=== PATIENT | male | born 1960 | race Caucasian/White ===

== ENCOUNTER 2016-09-19 18:46 | Inpatient (IN) | payer MEDICARE ==
[~2016-09-19 18:46] MED LIST: AVOD0.5C PO; CYCL-36 PO; CYMB60CA PO; FENO1CAP4 PO; IBUP-232 PO; ICOS1CAP PO; OMEP20TA PO; TERA2CAP3 PO; VALS160 PO
[2016-09-19] MEDS ORDERED: DIPHTH/TETANUS/ACEL PERTUSSIS (BOOSTER) 0.5 ML VIAL/PFS IM ONE (18:52)
[2016-09-19] MEDS ORDERED: ONDANSETRON HCL 4 MG/2 ML VIAL ONE (18:52)
[2016-09-19 19:09] LABS: I-STAT POTASSIUM 4.3 MMOL/L (3.5-4.9)
[2016-09-19 19:10] LABS: AUTOMATED NEUTROPHIL # 11.8 TH/MM3 (1.8-7.7); BASOPHIL # 0.1 TH/MM3 (0-0.2); BASOPHIL % 0.4 % (0.0-2.0); EOSINOPHIL # 0.1 TH/MM3 (0-0.4); EOSINOPHIL % 0.4 % (0.0-4.0); HEMATOCRIT 41.6 % (39.0-51.0); HEMO FLAGS DIFF FINAL; LYMPH % 19.9 % (9.0-44.0); LYMPHOCYTE # 3.2 TH/MM3 (1.0-4.8); MEAN CELL VOLUME 90.4 FL (80.0-100.0); MEAN CORPUSCULAR HEMOGLOBIN 29.7 PG (27.0-34.0); MEAN CORPUSCULAR HGB CONC 32.9 % (32.0-36.0); MONO % 6.2 % (0.0-8.0); NEUT % 73.1 % (16.0-70.0); PLATELET COUNT 201 TH/MM3 (150-450); RED CELL DISTRIBUTION WIDTH 14.8 % (11.6-17.2); WHITE BLOOD COUNT 16.1 TH/MM3 (4.0-11.0)
[2016-09-19] MEDS ORDERED: CLINDAMYCIN 600 MG/NS 100 ML IV ONE ×2 (19:15)
[2016-09-19 19:21] LABS: APTT (PATIENT) 23.8 SEC (24.3-30.1); PROTHROMBIN TIME - PATIENT 11.6 SEC (9.8-11.6)
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
[2016-09-19] MEDS ORDERED: LIDOCAINE 1%/EPINEPHrine 1:100,000 SOLN 20 ML VIAL INFIL ONE (19:45)
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
[2016-09-19] MEDS ORDERED: IOHEXOL 350 MG/ML 10 ML VIAL (for RAD DIAG) IV ONE (19:56)
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
[2016-09-19] MEDS ORDERED: ALPRAZolam 0.25 MG TAB PO PRN (21:45)
[2016-09-19] MEDS ORDERED: CHLORHEXIDINE GLUCONATE 2 % 1 PACK (2 CLOTHS) TOP PRN (21:45)
[2016-09-19] MEDS ORDERED: MISCELLANEOUS NURSING INFORMATION XX SCH (21:45)
[2016-09-19] MEDS ORDERED: MAGNESIUM HYDROXIDE SUSP 30 ML CUP PO PRN (21:45)
[2016-09-19] MEDS ORDERED: ENALAPRILAT 1.25 MG/ML VIAL IV PRN (21:45)
[2016-09-19] MEDS ORDERED: ONDANSETRON HCL 4 MG/2 ML VIAL IV PRN (21:45)
[2016-09-19] MEDS ORDERED: SODIUM CHLORIDE 0.9% FLUSH 5 ML FLUSH IVF PRN (21:45)
[2016-09-19] MEDS ORDERED: ACETAMINOPHEN/HYDROcodone 325 MG/5 MG TAB PO PRN (21:45)
[2016-09-19] MEDS: ENOXAPARIN SODIUM 30 MG/0.3 ML SYRINGE SQ SCH (23:00)
--- NOTE | 2016-09-19 23:06 | PD ---
Physical Exam Date Seen by Provider: Sep 19, 2016 Time Seen by Provider: 23:03 Narrative I was asked by Dr. Allison and Dr. Pate to repair laceration to the patient's right lower leg and forehead. Patient has a 23 cm laceration that is gaping approximately 3 cm across. Patient also has a 16 cm jagged laceration to the forehead. There is a lot of debris in the laceration in the laceration is down to the skull. I was able to repair the laceration to the right lower leg. However, I do feel it is more appropriate for plastics repair the laceration to the forehead. Dr. Conroy was paged. He will come to the emergency department and evaluate the patient. Data Data Orders Fentanyl Inj (Fentanyl Inj) (09/19/16 18:52) Ondansetron Inj (Zofran Inj) (09/19/16 18:52) Hpmc-Crz-Mqcftm (Booster) Inj (Boostrix (09/19/16 18:52) I-Stat Profile (09/19/16 18:49) I-Stat Creatinine (09/19/16 18:49) Complete Blood Count With Diff (09/19/16 18:49) Prothrombin Time / Inr (Pt) (09/19/16 18:49) Act Partial Throm Time (Ptt) (09/19/16 18:49) Type And Screen (09/19/16 18:49) Ct Brain W/O Iv Contrast(Rout) (09/19/16 18:49) Ct Cerv Spine W/O Contrast (09/19/16 18:49) Ct Abd/Pel W Iv Contrast(Rout) (09/19/16 18:49) Ct Thorax/ Chest W Iv Contrast (09/19/16 18:49) Ct Lumb Spine W/O Contrast (09/19/16 18:49) Ct Facial Bones W/O Iv Cont (09/19/16 18:49) Iv Access Insert/Monitor (09/19/16 18:49) Ecg Monitoring (09/19/16 18:49) Oximetry (09/19/16 18:49) Oxygen Administration (09/19/16 18:49) Chest, Single Ap (09/19/16 ) Tibia/Fibula (Ap/Lat) (09/19/16 ) Clindamycin Inj (Cleocin Inj) (09/19/16 19:15) Admit Order (Ed Use Only) (09/19/16 ) Labs Laboratory Tests Test 09/19/16 18:48 White Blood Count 16.1 TH/MM3 Red Blood Count 4.60 MIL/MM3 Hemoglobin 13.7 GM/DL Bedside Hemoglobin 14.3 G/DL Hematocrit 41.6 % Bedside Hematocrit 42.0 % Mean Corpuscular Volume 90.4 FL Mean Corpuscular Hemoglobin 29.7 PG Mean Corpuscular Hemoglobin 32.9 % Concent Red Cell Distribution Width 14.8 % Platelet Count 201 TH/MM3 Mean Platelet Volume 9.2 FL Neutrophils (%) (Auto) 73.1 % Lymphocytes (%) (Auto) 19.9 % Monocytes (%) (Auto) 6.2 % Eosinophils (%) (Auto) 0.4 % Basophils (%) (Auto) 0.4 % Neutrophils # (Auto) 11.8 TH/MM3 Lymphocytes # (Auto) 3.2 TH/MM3 Monocytes # (Auto) 1.0 TH/MM3 Eosinophils # (Auto) 0.1 TH/MM3 Basophils # (Auto) 0.1 TH/MM3 CBC Comment DIFF FINAL Differential Comment Prothrombin Time 11.6 SEC Prothromb Time International 1.0 RATIO Ratio Activated Partial 23.8 SEC Thromboplast Time Bedside Sodium 140 MMOL/L Bedside Potassium 4.3 MMOL/L Bedside Chloride 109 MMOL/L Bedside Blood Urea Nitrogen 25 MG/DL Bedside Creatinine 1.4 MG/DL Bedside Glucose 121 MG/DL Blood Type AB POSITIVE Antibody Screen NEGATIVE MDM Supervised Visit with GEE: No Procedures Procedure Narrative LACERATION LOCATION: Right lower leg LENGTH: 23 cm NUMBER OF STITCHES/SHIRAZ: 37 Prolene sutures, 5 Vicryl sutures REPAIR: The area of the laceration was prepped with Betadine and sterilely draped. The laceration was infiltrated with 1% lidocaine with epinephrine. The wound was copiously irrigated and explored without evidence of foreign body, tendon injury or neurovascular injury. The wound was closed using 3-0 Prolene and 4-0 Vicryl. This was a double layer repair. A sterile dressing was applied. The patient was advised to keep the dressing clean and dry. Patient tolerated the procedure well. Lilliana Adorno Sep 19, 2016 23:06
[2016-09-19] MEDS ORDERED: SODIUM BICARBONATE 8.4% INJ 50 MEQ/50 ML SYR IV PUSH ONE (23:15)
[2016-09-19] MEDS ORDERED: SODIUM BICARBONATE 8.4% INJ 50 ML ONE (23:28)
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
[2016-09-20 01:32] VITALS: BP 126/78; PULSE 80; RESP 17; TEMP 98; O2SAT 96
[2016-09-20] MEDS: ACETAMINOPHEN/HYDROcodone 325 MG/5 MG TAB PO PRN ×3 (02:04→13:31)
[2016-09-20 04:00] VITALS: BP 122/65; PULSE 77; RESP 18; TEMP 97.9; O2SAT 94
[2016-09-20] MEDS ORDERED: CHLORHEXIDINE GLUCONATE 2 % 1 PACK (2 CLOTHS) TOP SCH (04:00)
[2016-09-20] MEDS: CLINDAMYCIN INJ 600 MG in SODIUM CHLORIDE 0.9% INJ 100 ML IV SCH ×4 (06:00→11:23)
[2016-09-20 08:00] VITALS: BP 127/78; PULSE 73; RESP 18; TEMP 97.6; O2SAT 96
[2016-09-20] MEDS: ENOXAPARIN SODIUM 30 MG/0.3 ML SYRINGE SQ SCH (08:09)
[2016-09-20] MEDS ORDERED: DOCUSATE SODIUM 100 MG CAP PO SCH (09:00)
[2016-09-20 12:21] VITALS: BP 119/77; PULSE 64; RESP 18; TEMP 96.3; O2SAT 96
[2016-09-20] MEDS ORDERED: DOCU1CAP39 PO (13:57)
[2016-09-20] MEDS ORDERED: CLIN1CAP6 PO (13:57)
[2016-09-20] MEDS ORDERED: HYDR-3516 PO (13:57)
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
[2016-09-20 15:01] VITALS: RESP 20
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
== END 2016-09-20 15:35 | disposition home or self-care (01) | DRG 572 ==
LOC: NEPI 18:46 → EDBD 19:19 → MERGE 19:19 → NEDA 19:19 → N06B 09-20 00:45
PROVIDERS: ADMIT Surgery; ATTEND Surgery
PROC: 0HQKXZZ Repair Right Lower Leg Skin, External Approach (ICD-10-PCS; 2016-09-19)
PROC: 0HB1XZZ Excision of Face Skin, External Approach (ICD-10-PCS; principal; 2016-09-20)
PROC: 0HQ1XZZ Repair Face Skin, External Approach (ICD-10-PCS; 2016-09-20)
DX: S01.82XA Laceration with foreign body of other part of head, initial encounter (principal); S81.811A Laceration without foreign body, right lower leg, initial encounter; I10 Essential (primary) hypertension; F41.9 Anxiety disorder, unspecified; F17.200 Nicotine dependence, unspecified, uncomplicated; V23.4XXA Motorcycle driver injured in collision with car, pick-up truck or van in traffic accident, initial encounter; Y92.410 Unspecified street and highway as the place of occurrence of the external cause; Z88.0 Allergy status to penicillin
CPT/HCPCS: 12036; 70450; 70486; 71010; 71260; 72125; 72131; 73590; 74177; 82435; 82565; 82947; 84132; 84295; 84520; 85025; 85610; 85730; 86850; 86900; 86901; 90471; 90715; 94150; 96374; 96375; 99291; G0390; J1650; J2405; J3010; L0150; Q9967